=== PATIENT | female | born 1955 | race Caucasian/White ===

== ENCOUNTER 2023-03-08 10:43 | Inpatient (IN) | payer MEDICARE ==
[2023-03-08] VITALS (15 sets, daily range): BP systolic 110–142; BP diastolic 54–76
[~2023-03-08] VITALS: Ht 165.1 cm; Wt 48.4 kg
[~2023-03-08 10:43] MED LIST: BUPR150T2 PO; CLIN300 PO; Flonase 0.05% N16 GM; GABA300 PO; LOSHYD PO; OXYACE5T PO; Vyvanse50 MG PO; [UNRECOGNIZED DRUG - REMARK]
[2023-03-08 11:29] LABS: BASOPHILS ABSOLUTE AUTO 0.13 K/mm3 (0.00-0.23); BASOPHILS PERCENT AUTO 1 % (0-2); EOSINOPHILS ABSOLUTE AUTO 0.01 K/mm3 (0.00-0.68); EOSINOPHILS PERCENT AUTO 0 % (0-6); Hematocrit 41.8 % (33.0-51.0); Hemoglobin 14.3 g/dL (11.5-16.0); IMMATURE GRAN ABSOLUTE AUTO 0.23 K/mm3 (0.00-0.10); IMMATURE GRAN PERCENT AUTO 1 % (0-1); LYMPHOCYTES PERCENT AUTO 6 % (21-46); MONOCYTES ABSOLUTE AUTO 1.44 K/mm3 (0.16-1.47); MONOCYTES PERCENT AUTO 5 % (4-13); Mean Corpuscular HGB Conc 34.2 g/dL (31.5-36.5); Mean Corpuscular Volume 79 fL (80-100); Mean Platelet Volume 8.7 fL (9.1-12.4); NEUTROPHILS ABSOLUTE AUTO 23.62 K/mm3 (1.96-9.15); NEUTROPHILS PERCENT AUTO 87 % (41-73); Platelet Count 584 K/mm3 (150-400); RDW Standard Deviation 36.8 fL (35.1-46.3); White Blood Cell Count 27.13 K/mm3 (4.00-11.30)
[2023-03-08 11:44] LABS: Albumin, Blood 3.2 g/dL (3.4-5.0); Albumin/Globulin Ratio 0.7 (0.8-1.8); Bilirubin, Total 0.8 mg/dL (0.1-1.0); Bun/Creatinine Ratio 72.9 (12.0-20.0); Creatinine, Blood 0.77 mg/dL (0.40-1.00); Globulin, Blood 4.9 g/dL (2.2-4.0); Potassium, Blood 3.7 mmol/L (3.5-5.5); Total Protein, Blood 8.1 g/dL (6.4-8.2)
[2023-03-08 12:18] LABS: Influenza A, PCR NEGATIVE (NEGATIVE); Influenza B, PCR NEGATIVE (NEGATIVE); Resp Syncytial Virus, PCR NEGATIVE (NEGATIVE); SARS-Cov-2 (COVID-19) PCR, MMC NEGATIVE (NEGATIVE)
--- NOTE | 2023-03-08 13:58 | NUR ---
RECEIVED PT FROM ER. PT IS ALERT BUT APPEARS ORIENTED TO SELF ONLY. PT DENIES PAIN AT THIS TIME. PERSONAL HX OF DEMENTIA PER DR. MIGUEL AFTER SPEAKING WITH PT DAUGHTER KOKI. PT DENIES PAIN AT THIS TIME. PT C/O VOMITING AND STATES ITS BEEN "DAYS AGO" LS CLEAR T/O. IV 18G LAC, 18 RFA. PT PREPS FOR SURGERY.
[2023-03-08 15:52] LABS: Bilirubin, Urine Neg (Neg); Blood, Urine 1+ (Neg); Color, Urine Yellow (P-Yellow); Glucose Qualitative, Urine Neg (Neg); Ketones, Urine 3+ (Neg); Leukocyte Esterase, Urine 1+ (Neg); Nitrite, Urine Neg (Neg); Protein, Urine 2+ (Neg); Urobilinogen, Urine 1+ (Normal)
[2023-03-08 16:05] LABS: Appearance, Urine Hazy (Clear)
[2023-03-08 16:06] LABS: Amorphous Light (0-Heavy); Bacteria Many /hpf; Mucus Light (0-Heavy); Red Blood Cells, Urine 0-2 /hpf (0-2); Squamous Epithelial Cells Rare /hpf (Few)
[2023-03-08 18:43] LABS: Bun/Creatinine Ratio 60.6 (12.0-20.0); Calcium, Blood 7.2 mg/dL (8.5-10.1); Creatinine, Blood 0.61 mg/dL (0.40-1.00); Potassium, Blood 3.7 mmol/L (3.5-5.5)
[2023-03-09 03:48] VITALS: BP 114/65
[2023-03-09 04:44] LABS: BASOPHILS ABSOLUTE AUTO 0.06 K/mm3 (0.00-0.23); BASOPHILS PERCENT AUTO 0 % (0-2); EOSINOPHILS ABSOLUTE AUTO 0.03 K/mm3 (0.00-0.68); EOSINOPHILS PERCENT AUTO 0 % (0-6); Hematocrit 32.1 % (33.0-51.0); Hemoglobin 10.5 g/dL (11.5-16.0); IMMATURE GRAN ABSOLUTE AUTO 0.09 K/mm3 (0.00-0.10); IMMATURE GRAN PERCENT AUTO 1 % (0-1); LYMPHOCYTES ABSOLUTE AUTO 1.54 K/mm3 (0.84-5.20); LYMPHOCYTES PERCENT AUTO 10 % (21-46); MONOCYTES ABSOLUTE AUTO 1.02 K/mm3 (0.16-1.47); MONOCYTES PERCENT AUTO 7 % (4-13); Mean Corpuscular HGB Conc 32.7 g/dL (31.5-36.5); Mean Corpuscular Volume 83 fL (80-100); Mean Platelet Volume 8.9 fL (9.1-12.4); NEUTROPHILS ABSOLUTE AUTO 12.37 K/mm3 (1.96-9.15); NEUTROPHILS PERCENT AUTO 82 % (41-73); Platelet Count 357 K/mm3 (150-400); RDW Coefficient Variation 13.2 % (11.7-14.2); RDW Standard Deviation 39.8 fL (35.1-46.3); Red Blood Cell Count 3.89 M/mm3 (3.80-5.20); White Blood Cell Count 15.11 K/mm3 (4.00-11.30)
[2023-03-09 05:15] LABS: Bun/Creatinine Ratio 56.5 (12.0-20.0); Calcium, Blood 7.8 mg/dL (8.5-10.1); Creatinine, Blood 0.51 mg/dL (0.40-1.00); Magnesium, Blood 2.1 mg/dL (1.6-2.4); Phosphorus, Blood 2.2 mg/dL (2.5-4.9); Potassium, Blood 3.6 mmol/L (3.5-5.5)
--- NOTE | 2023-03-09 06:30 | NUR ---
SHIFT SUMMARY PT IS HERE POD#1 FOR A FEMORAL HERNIA REPAIR AFTER HAVING A SIGNIFICANT SBO. PT HAS AN NGT IN, BUT IS HAVING DIFFICULTY REMEMBERING TO LEAVE IT IN D/T DEMENTIA, WHICH THE PT DENIES HAVING. PT HAD A SITTER THE FIRST HALF OF THE SHIFT AND WAS ABLE TO BE RE-ORIENTED CONSISTENTLY. AFTER THE SITTER LEFT, PT HAD DIFFICULTY REMEMBERING TO LEAVE THE TAPE ON SECURING HER NGT. PT KEPT SAYING HER DAUGHTER WAS HERE TO VISIT, WHICH SHE IS NOT, AND THAT SHE NEEDED TO LEAVE THE HOSPITAL TO TAKE "CARE OF BUSINESS." PT RE-ORIENTED AND EDUCATED THROUGHOUT THE SHIFT. ALVAREZ GREENE STAYED WITH PT FOR THE LAST FEW HOURS OF THE SHIFT TO ENSURE THE PT DOES NOT REMOVE HER NGT. PT'S VITAL SIGNS HAVE BEEN STABLE THROUGHOUT THE SHIFT. NO OTHER ACUTE EVENTS OCCURRED OVERNIGHT. BED IS IN LOWEST POSITION, CALL LIGHT IS WITHIN REACH.
[2023-03-09 07:26] VITALS: BP 118/66
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
[2023-03-09 14:30] VITALS: BP 104/49
[2023-03-09 14:58] VITALS: BP 108/55
[2023-03-09 20:21] VITALS: BP 119/58
[2023-03-10 02:51] VITALS: BP 100/51
--- NOTE | 2023-03-10 06:00 | NUR ---
SHIFT SUMMARY PT HAS RESTED T/O THE NIGHT, PT HAS HAD NO ANXIETY OR PERIODS OF AGITATION THIS SHIFT. PT DENIES PAIN OR NEEDS WHEN ASKED. SURGICAL DRESSING INTACT. WATSON PATENT AND DRAINING. PT HAS HAD A CLINICAL SITTER AT BEDSIDE T/O SHIFT. VITALS ARE STABLE. NO CHANGE IN PLAN OF CARE. BED IN LOWEST POSITION, CALL LIGHT WITHIN REACH.
[2023-03-10 07:06] VITALS: BP 126/67
[2023-03-10 15:37] VITALS: BP 117/94
--- NOTE | 2023-03-10 16:04 | NUR ---
VISITORS PATIENT HAD A VISITOR THAT WAS A MALE WHO CLAIMED TO BE PATIENT'S S/O. VISITOR HAD 2 SMALL CHILDREN AND ANOTHER WOMAN WHO CLAIMS TO BE THE MOTHER OF THE CHILDREN WELL VISIT THE PATIENT. SITTER WAS IN ROOM WHILE VISIT LASTED APPOROX 10 MIN.ALL ADULT VISITORS APPEARED TO BE IN MID 30'S-40'S AGE RANGE. PATIENT SEEMED FINE WITH VISIT.
[2023-03-10 16:35] LABS: Source, Urine Foley catheter
[2023-03-10 16:40] LABS: Bilirubin, Urine Neg (Neg); Blood, Urine 2+ (Neg); Glucose Qualitative, Urine Neg (Neg); Ketones, Urine 1+ (Neg); Leukocyte Esterase, Urine 3+ (Neg); Nitrite, Urine Neg (Neg); Protein, Urine 1+ (Neg); Urobilinogen, Urine NORM (Normal)
[2023-03-10 16:47] LABS: Appearance, Urine Hazy (Clear); Bacteria Few /hpf; Color, Urine Pale Yellow (P-Yellow); Squamous Epithelial Cells Not Seen /hpf (Few)
--- NOTE | 2023-03-10 17:04 | NUR ---
REPORT OFF TO KAE SHAW. PATIENT WAS STRAIGHT CATHED WITH 800 OUT, TOLERATED WELL. PATIENT IS COOPERATIVE WITH CARE, AOX2-3 AT TIMES. HX OF DEMENTIA. HERNIA REPAIR DRESSING IN PLACE WITH TEGEDERM AND GAUZE C/D/I. BED ALARM AND SITTER IN PLACE. CALL IN REACH.
[2023-03-10 19:18] VITALS: BP 105/62
[2023-03-11 03:19] VITALS: BP 127/69
--- NOTE | 2023-03-11 05:50 | NUR ---
SHIFT SUMMARY PT HAS RESTED MOST OF THE NIGHT. PT PULLED OUT ONE OF HER IV EARLIER IN THE MORNING. BUT OTHERWISE PT HAS BEEN COOPERATIVE WITH CARE, SHE HAS NOT ATTEMPTED TO PULL OUT HER OTHER IV. VITALS ARE STABLE. SURGICAL SITE TO LOWER ABD WITHIN NORMAL LIMITS, DRESSING DRY AND INTACT. BOWEL TONES HYPERACTIVE TO LOWER QUADRANTS. PT DENIES PAIN. 1:1 SITTER T/O THE NIGHT. PLAN OF CARE OF CARE REMAINS UNCHANGED.
[2023-03-11 07:34] VITALS: BP 104/72
--- NOTE | 2023-03-11 09:32 | NUR ---
DR MIGUEL IN TO SEE PT.
--- NOTE | 2023-03-11 10:22 | NUR ---
DR KUMAR IN TO SEE PT.
[2023-03-11 15:12] VITALS: BP 109/61
--- NOTE | 2023-03-11 16:29 | NUR ---
summary NO ACUTE CHANGES THUS FAR IN SHIFT. PT SLEPT FIRST HALF OF SHIFT, AWAKENING TO VOICE. REPOSITIONS FREQUENTLY IN BED. WATSON DRAINING LIGHT YELLOW URINE. PT HAS HAD MINIMAL PO INTAKE, STATING FULL LIQUIDS HAVE TOO MANY SWEET ITEMS. ADVANCED PER ORDERS TO REGULAR DIET FOR DINNER PER PT REQUEST. PT ORIENTED REMAINS ORIENTED A&OX1-2. SITTER AT DOOR.
[2023-03-11 20:12] VITALS: BP 110/64
--- NOTE | 2023-03-11 20:57 | NUR ---
PT IS BEING PLACED ON CAMERA OBSERVATION FOR IMPULSIVITY INSTEAD OF 1:1 SITTER AND ORDERS RECEIVED.HOWEVER, CONTINUING PT ON 1:1 SITTER AT THIS TIME UNTIL ENERGY SALES CONSULTANT CAN OBTAIN CAMERA FOR PT.
[2023-03-12 03:36] VITALS: BP 101/60
--- NOTE | 2023-03-12 06:41 | NUR ---
SHIFT SUMMARY PT IS POD#4 FOR AN INCARCERATED LEFT FEMORAL HERNIA REPAIR WITH MESH. PT RESTED COMFORTABLY MOST OF THE SHIFT WITH NO ACUTE EVENTS OCCURRING OVERNIGHT. SITTER WAS DC'D AND A VIDEO MONITORING SYSTEM WAS PUT IN PLACE TO WATCH OVER THE PT FOR THE MAJORITY OF THE SHIFT. BED IS IN LOWEST POSITION, CALL LIGHT IS WITHIN REACH.
[2023-03-12 07:31] VITALS: BP 100/54
[2023-03-12 15:15] VITALS: BP 93/54
--- NOTE | 2023-03-12 16:53 | NUR ---
PATIENT AOX2. ABLE TO SIT UP AND EAT AT SIDE OF BED. TOELRATING PO INTAKE AND DENIES PAIN, N/V. CAMERA IN ROOM FOR SAFETY, BED ALARM IS ON. NO IV ACCESS. PATIENT IS PLEASANT AND COOPERATIVE WITH CARE. CALL LIGHT IS IN REACH.
[2023-03-12 19:40] VITALS: BP 103/55
--- NOTE | 2023-03-12 23:55 | NUR ---
PT COMPLAINING OF PAIN. UNABLE TO COMPLETELY ARTICULATE THE NATURE OF THIS PAIN. DISCUSSED WITH PT AND SHE IS COMFORTABLE TAKING TYLENOL FOR MANAGEMENT. SPOKE WITH HOSPITALIST CHAY WHO ORDERED ACETAMINOPHEN AND TRAMADOL PO FOR PAIN MANAGEMENT, START WITH TYLENOL AND USE TRAMADOL IF TYLENOL IS INSUFFICIENT. ORDERS ENTERED AND WILL ADMINISTER ONCE AVAILABLE.
[2023-03-13 03:32] VITALS: BP 109/60
--- NOTE | 2023-03-13 04:15 | NUR ---
SHIFT SUMMARY. SHIFT HAS BEEN MOSTLY UNREMARKABLE. PT IS PLEASANT AND COOPERATIVE WITH CARE. ONLY COMPLAINT OF SHIFT WAS LATE LAST NIGHT WHEN PT COMPLAINED OF PAIN AT CATH SITE. INITIALLY, PT WAS BEING NONDESCRIPT WITH COMPLAINTS OF PAIN AND DID NOT COMPLETELY ARTICULATE IT. CALLED HOSPITALIST FOR PAIN MEDICATION ORDERS. SEE RELATED NOTE FOR DETAILS. UPON ADMINISTRATION OF MEDICATIONS, PT DID SPECIFY THAT SHE WAS EXPERIENCING PAIN AT SITE OF CATHETER PLACEMENT. ADMINISTERED TYLENOL, INSPECTED SITE. DRAINING WELL. NO BLOOD, SWELLING, REDNESS, S/S OF INFECTION AT ALL. PT SOMEWHAT AT EASE AFTER THIS ALTHOUGH IT SEEMED LIKE SHE WAS GENERALLY ANXIOUS ABOUT HAVING CATHETER IN DUE TO REPORTED HX OF UTIs. SINCE TYLENOL ADMINISTRATION, PT HAS BEEN SLEEPING THROUGH MOST OF MORNING. NO FURTHER COMPLAINTS OF PAIN. REMOTE MONITORING CAMERA REMAINS IN PLACE FOR SAFETY. USES CALL LIGHT APPROPRIATELY THUS FAR. BED LOCKED IN LOWEST POSITION. CALL LIGHT LEFT WITHIN REACH. CONTINUING TO MONITOR.
[2023-03-13 07:09] VITALS: BP 101/59
[2023-03-13 15:49] VITALS: BP 103/66
--- NOTE | 2023-03-13 17:51 | NUR ---
SHIFT SUMMARY PT HAS BEEN PLEASANT & UPBEAT TODAY. UP TO SHOWER, SAT IN CHAIR x 2, & AMBULATED IN HALLWAY. DENIES PAIN THIS AFTERNOON. SURG SITE WNL. TOLERATING DIET.
[2023-03-13 18:37] VITALS: BP 98/63
[2023-03-14 03:45] VITALS: BP 92/55
--- NOTE | 2023-03-14 04:21 | NUR ---
SHIFT SUMMARY NO ACUTE CHANGES TO REPORT OVERNIGHT, PT DENIES PAIN. SURGICAL SITE WNL. PT HAS BEEN PLESANT AND COOPERATIVE WITH CARE, NO BEHAVIORAL ISSUES. VITALS ARE STABLE. PLAN OF CARE REMAINS UNCHANGED. [facility]
[2023-03-14 07:22] VITALS: BP 94/57
[2023-03-14 08:58] LABS: Hematocrit 32.4 % (33.0-51.0); Hemoglobin 10.4 g/dL (11.5-16.0); Mean Corpuscular HGB 26.8 pg (26.0-34.0); Mean Corpuscular HGB Conc 32.1 g/dL (31.5-36.5); Mean Corpuscular Volume 84 fL (80-100); Mean Platelet Volume 8.9 fL (9.1-12.4); Platelet Count 298 K/mm3 (150-400); RDW Coefficient Variation 13.3 % (11.7-14.2); RDW Standard Deviation 40.6 fL (35.1-46.3); Red Blood Cell Count 3.88 M/mm3 (3.80-5.20); White Blood Cell Count 5.46 K/mm3 (4.00-11.30)
[2023-03-14 09:10] LABS: Magnesium, Blood 1.8 mg/dL (1.6-2.4)
[2023-03-14 09:11] LABS: Albumin, Blood 2.3 g/dL (3.4-5.0); Anion Gap 4 mmol/L (6-16); Blood Urea Nitrogen 13 mg/dL (8-24); Bun/Creatinine Ratio 24.9 (12.0-20.0); CO2, Blood 29 mmol/L (21-32); Calcium, Blood 8.3 mg/dL (8.5-10.1); Chloride, Blood 108 mmol/L (98-108); Creatinine, Blood 0.52 mg/dL (0.40-1.00); Glomerular Filtration Rate 100 (60-); Glucose, Blood 89 mg/dL (70-99); Phosphorus, Blood 3.2 mg/dL (2.5-4.9); Potassium, Blood 3.7 mmol/L (3.5-5.5); Sodium, Blood 141 mmol/L (136-145)
[2023-03-14 15:01] VITALS: BP 95/65
--- NOTE | 2023-03-14 18:49 | NUR ---
SHIFT SUMMARY WATSON WAS REMOVED & WAS ABLE TO VOID. NO ACUTE CHANGES.
[2023-03-14 19:18] VITALS: BP 104/61
--- NOTE | 2023-03-15 02:56 | NUR ---
RETENTION PT IS RETAINING URINE, 662 MLS IN BLADDER WITH SCAN. PT HAD CATHETER REMOVED DAYSHIFT YESTERDAY AND HAS BEEN VOIDING. SHE VOIDED 300 THIS SHIFT. PT REPORTS THAT SHE IS FEELING DISCOMFORT WITH THE RETENTION. SHE IS AGREEABLE TO HAVING ANOTHER WATSON PLACED AT THIS TIME. DR. SKINNER CALLED AND NOTIFIED OF RETENTION. PT HAS ALSO BEEN MORE AGITATED THIS SHIFT, CLIMBING OUT OF BED FREQUENTLY, ASKING WHEN SHE CAN LEAVE AND HAS NOT SLEPT. DR. SKINNER NOTIFED OF THAT WELL. HE ORDERED A ONE TIME DOSE OF IM ZYPREXA IF NEEDED. WILL PLACE WATSON TO SEE IF EMPTYING HER BLADDER HELPS WITH HER AGITATION.
[2023-03-15 03:59] VITALS: BP 108/68
--- NOTE | 2023-03-15 05:13 | NUR ---
SHIFT SUMMARY PT MORE ANXIOUS THIS SHIFT, SHE HAS BEEN ATTEMPTING TO GET OOB FREQUENTLY AND SETTING OFF BED ALARM. PT ALSO CONFUSED TO SITUATION AND HER CURRENT PLAN OF CARE AND KEEPS ASKING WHEN SHE IS GOING TO BE ABLE TO LEAVE. PT REORIENTED PRN. PT CONTINUES TO HAVE RETENTION ISSUES. PT VOIDED 300 MLS AT THE START OF THE SHIFT, BUT DESPITE THIS PT WAS FOUND TO STILL BE RETAINING OVER 600 MLS OF URINE. NOTIFIED OF RETENTION AND ANOTHER CATHETER WAS PLACED. VIRTUAL CAMERA IN PLACE. BED ALARM IN PLACE, CALL LIGHT WITHIN REACH.
[2023-03-15 07:24] VITALS: BP 111/61
[2023-03-15 15:16] VITALS: BP 97/63
--- NOTE | 2023-03-15 16:28 | NUR ---
SHIFT SUMMARY PT HAS BEEN PLEASANT, BUT ODD T/O SHIFT; UNCHANGED. UP FOR MEALS & AMBULATED IN HALLWAY. EATING & DRINKING. WATSON & SURG SITE WNL.
[2023-03-15 19:04] VITALS: BP 98/70
[2023-03-16 02:12] VITALS: BP 96/53
--- NOTE | 2023-03-16 06:19 | NUR ---
SHIFT SUMMARY PT HAD AN UNEVENTFUL NIGHT AND SLEPT FOR MOST OF THE SHIFT. VITAL SIGNS STABLE AND WATSON CATHETER REMAINS PATENT. BED IS IN LOWEST POSITION, CALL LIGHT IS WITHIN REACH.
[2023-03-16 07:39] VITALS: BP 107/63
--- NOTE | 2023-03-16 15:00 | NUR ---
SHIFT SUMMARY: POD 8 LEFT HERNIA REPAIR WITH MESH PATIENT IS A&OX2 WITH HX OF DEMENTIA. VS ARE WNL AND IS ON RA. PATIENT DENIES PAIN THROUGHOUT SHIFT. PATIENT IS TOLERATING PO INTAKE. PATIENT HAS WATSON IN PLACE DUE TO RETENTION ISSUES BUT IS DRAINING PER GRAVITY WITH YELLOW URINE OUTPUT. PATIENT HAS SO FAR CALLED APPROPRIATELY. BED ALARM/CHAIR ALARM IN PLACE A PRECAUTION. SHE IS LAYING IN BED WITH CALL LIGHT IN REACH. THE PLAN IS WAITING FOR HER DAUGHTER TO OBTAIN GUARDIANSHIP THROUGH APS AND THEN EVENTUALLY BEING DISCHARGED TO A [employer] [employer] [facility].
--- NOTE | 2023-03-16 15:08 | NUR ---
THIS NURSE JUST GAVE REPORT TO LOUIS SHAW ON MEDICAL FLOOR. AFTER REPORT WAS GIVEN LOUIS RN HAD NO FURTHER QUESTIONS AT THIS TIME.
--- NOTE | 2023-03-16 15:44 | NUR ---
TRANSFER FROM SURGICAL FLOOR PATIENT TRANSFERED FROM SURGICAL FLOOR VIA WHEELCHAIR. PATIENT ALERT AND INTERACTIVE BUT ANXIOUS AND FORGETFUL. PATIENT COOPERATIVE WITH CARE AND VERBALIZING THAT SHE CAN'T WAIT FOR HER DAUGHTER TO GET HER. L GROIN SITE INTACT. [address] IN PL[address]. NO DRAINAGE OR REDNESS NOTED. CAMERA IN ROOM FOR SAFETY. PATIENT REORIENTED TO ROOM AND CALL LIGHT PROVIDED.
[2023-03-16 15:54] VITALS: BP 91/52
[2023-03-16 19:21] VITALS: BP 117/67
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
[2023-03-17 02:52] VITALS: BP 114/62
--- NOTE | 2023-03-17 03:48 | NUR ---
NO CHANGE IN CONDITION 0330 PT AWAKE AND ALERT WOULD REALLY LIKE TO GO HOME TODAY IF DAUGHTER ARRIVES. I EXPLAINED THE NEED FOR WATSON TO BE REMOVED BUT IT WAS REINSERTED BECAUSE PT COULDNT URINATE. I ENG BLADDER TRAINING AND CLAMPED THE WATSON. PT THOUGH CONFUSED SOMETIMES WAS ABLE TO UNDERSTAND WHY THE WATSON WAS CLAMPED.
[2023-03-17 07:26] VITALS: BP 104/68
[2023-03-17 16:10] VITALS: BP 93/61
--- NOTE | 2023-03-17 17:02 | NUR ---
SHIFT SUMMARY PATIENT ALERT AND INTERACTIVE BUT CONFUSED. PATIENT AMBULATING INDEPENDENTLY. EASILY ANXIOUS. PATIENT ABLE TO AMBULATE IN HALLS WITH STAND BY ASSIST. PATIENT SHOWERED. CATHETER STILL IN PLACE. PATIENT HAVING SMALL FREQUENT SOFT STOOLS. L GROIN INCISION REMAINS INTACT. STERISTRIPS REMOVED IN SHOWER. PATIENT EAGER FOR DAUGHTER TO ARRIVE AND GET HER. NO BEHAVIORS NOTED. PATIENT COOPERATIVE WITH CARE AND FOLLOWING DIRECTION.
[2023-03-17 19:26] VITALS: BP 108/59
[2023-03-18 02:53] VITALS: BP 90/55
[2023-03-18 05:05] VITALS: BP 94/55
--- NOTE | 2023-03-18 05:25 | NUR ---
PATIENT IS ALERT AND ORIENTED TO NAME, EVENT AND PLACE WITH INDWELLING CATHETER PATENT AND DRAINING WELL. NO COMPLAINTS OF PAIN. ABLE TO SLEPT WELL. NEEDS ATTENDED. CALL LIGHT WITHIN PATIENT'S REACH. WILL CONTINUE TO MONITOR.
[2023-03-18 07:36] VITALS: BP 93/59
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
[2023-03-18 20:49] VITALS: BP 81/40
[2023-03-18 20:57] VITALS: BP 95/53
[2023-03-19 02:49] VITALS: BP 101/53
--- NOTE | 2023-03-19 06:16 | NUR ---
PATIENT IS ALERT AND ORIENTED, NO COMPLAINTS OF PAIN MADE. ABLE TO AMBULATE TO THE BATHROOM ON SBA; ABLE TO TAKE MEDICACTION WITHOUT ANY ISSUES; HAD A BOWEL MOVEMENT TODAY AND PATIENT WAS HAPPY ABOUT IT. NEEDS ATTENDED. WILL CONTINUE TO MONITOR.
[2023-03-19 07:12] VITALS: BP 109/61
--- NOTE | 2023-03-19 07:47 | NUR ---
ASSUMED CARE OF PT- REPORT COMPLETED WITH NIGHT RN. PT ALERT, ORIENTED TO SELF. ON MORNING ASSESSMENT SPOKE TO THE PT ABOUT HER INSISION FROM HERNIA REPAIR. PT IS CONFUSED. DENIES ANY PAIN. SOME GEN SWELLING TO THE AREA NO REDNESS OR HEAT, NO DRAINAGE NOTED.
[2023-03-19 16:07] VITALS: BP 100/57
--- NOTE | 2023-03-19 16:38 | NUR ---
SHIFT SUMMARY- PT HAS HAD NO ACUTE CHANGE T/O THE SHIFT. SHE HAS BEEN UP SBA T/O THE DAY, CHAIR FOR MEALS AND A SHOWER THAT SHE DID INDEPENDENTLY, AID ASSISTED HER TO THE BATHROOM AND GETTING INTO THE SHOWER, PT DID THE WHOLE SHOWER ON HER OWN. PT CURRENTLY IN BED, CALL LIGHT IN REACH NO S&S OF DISTRESS NOTED.
[2023-03-19 19:36] VITALS: BP 95/54
[2023-03-20 04:24] VITALS: BP 94/67
[2023-03-20 04:25] VITALS: BP 94/67
--- NOTE | 2023-03-20 04:53 | NUR ---
SHIFT SUMMARY - NO ACUTE CHANGES THROUGHOUT THIS SHIFT. STERI STRIP IN PLACE TO LEFT GROIN SITE - SITE SWOLLEN AT THE BEGINNING OF THE SHIFT, NO CHANGE TO SITE FROM BEGINNING OF SHIFT. PT REQUESTED A SNACK AND PO FLUIDS DURING THE NIGHT - PROVIDED. FLUIDS AT BEDSIDE THROUGHOUT THE NIGHT. PT HAS BEEN UP TO THE CHAIR, AND TO THE BATHROOM WITH A SBA. BED ALARM ON FOR PT SAFETY. CALL LIGHT WITHIN REACH. BED IN LOW POSITION. WILL CONTINUE TO MONITOR UNTIL AM SHIFT CHANGE.
[2023-03-20 07:15] VITALS: BP 116/58
[2023-03-20 15:37] VITALS: BP 129/73
--- NOTE | 2023-03-20 16:32 | NUR ---
SHIFT SUMMARY PT AOX1, ORIENTED TO FAMILY. C/O NAUSEA AT THE START OF THE SHIFT, MEDICATED PER THE EMAR. NO OTHER COMPLAINTS. PT HAS BEEN EATING AND DRINKING WELL, USING THE CALL LIGHT FOR SBA TO THE BR. CAMERA IN PLACE. WALKED WITH PT IN THE HALLS TODAY AND SHE TOLERATED IT WELL. UP TO THE CHAIR FOR MEAL AND TOLERATING IT WELL. CALL LIGHT WITHIN REACH, BED IN THE LOWEST POSITION. WILL REPORT TO ONCOMING NURSE.
[2023-03-20 19:33] VITALS: BP 109/54
--- NOTE | 2023-03-21 04:24 | NUR ---
SHIFT SUMMARY 68 YR F ADMITTED ON 03/08/23. FULL CODE. NO ACUTE CHANGES THIS SHIFT. PT HAS SLEPT FOR MOST OF THIS SHIFT BUT DOES NOT CALL FOR ASSISTANCE WHEN SHE GETS UP TO USE THE BATHROOM. HOWEVER, SHE IS STEADY ON HER FEET AND AMBULATES WELL. SHE APPEARS TO BE CONFUSED AND STATES THAT SHE IS WAITING FOR HER FAMILY TO PICK HER UP AND TAKE HER HOME WITH THEM. SHE IS PLEASANT AND COOPERATIVE WITH CARE. NO C/O PAIN OR DISCOMFORT THIS SHIFT. BED IN LOW POSITION AND CALL LIGHT IN REACH. SHE IS STILL ON CAMERA BUT THIS NURSE WAS NOT ALERTED WHEN PT GOT OUT OF BED W/O ASSISTANCE.
[2023-03-21 04:47] VITALS: BP 96/58
[2023-03-21 07:18] VITALS: BP 114/70
[2023-03-21 15:23] VITALS: BP 117/61
--- NOTE | 2023-03-21 16:15 | NUR ---
SHIFT SUMMARY PT AOX1, COOPERATIVE WITH CARE. NO ACUTE ISSUES THIS SHIFT. PT MEDICATED FOR NAUSEA AT THE START OF THE SHIFT, NO ISSUES SINCE. APPETITE IS GOOD, DRINKING FLUIDS. CAMERA IS STILL IN PLACE BUT ALLOWING PT TO MOVE MORE FREELY IN THE ROOM. SHE IS TOLERATING IT WELL AND THERE HAVE BEEN NO ISSUES. CALL LIGHT WITHIN REACH, BED IN THE LOWEST POSITION. WILL REPORT TO ONCOMING NURSE.
[2023-03-21 19:20] VITALS: BP 96/52
[2023-03-22 02:09] VITALS: BP 109/68
--- NOTE | 2023-03-22 03:48 | NUR ---
SHIFT SUMMARY 68 YR F ADMITTED ON 03/08/23. FULL CODE. NO ACUTE CHANGES THIS SHIFT. PT HAS SLEPT FOR MOST OF THIS SHIFT. SHE WOKE UP FOR 2100 MEDS AND WENT RIGHT BACK TO SLEEP. NO C/O PAIN OR DISCOMFORT. BED IN LOW POSITION AND CALL LIGHT IN REACH. WILL CONTINUE TO MONITOR.
[2023-03-22 07:10] VITALS: BP 116/72
[2023-03-22 15:50] VITALS: BP 116/68
--- NOTE | 2023-03-22 17:18 | NUR ---
SHIFT SUMMARY: PT ORIENTED TO SELF ONLY. INDEPENDENT IN ROOM. NO ACUTE CHANGES THIS SHIFT. CAMERA IN PT ROOM DISCONTINUED THIS SHIFT THERE WAS NO NEED FOR IT. PT IS NOT A FALL RISK OR PULLING AT LINES. PT C/O HARD STOOLS DURING AM SHIFT REPORT BUT HAS NOT C/O OF THIS PROBLEM SINCE. CALL LIGHT IN REACH. BED IN LOWEST POSITION.
[2023-03-22 19:52] VITALS: BP 93/46
--- NOTE | 2023-03-23 04:40 | NUR ---
SHIFT SUMMARY 68 YR F ADMITTED ON 03/08/23. FULL CODE. NO ACUTE CHANGES THIS SHIFT. PT HAS SLEPT FOR MOST OF THIS SHIFT. SHE IS INDEPENDANT IN THE ROOM AND AMBULATES TO THE BATHROOM. NO C/O PAIN OR DISCOMFORT THIS SHIFT. BED IN LOW POSITION AND CALL LIGHT IN REACH. WILL CONTINUE TO MONITOR.
[2023-03-23 04:59] VITALS: BP 114/73
[2023-03-23 06:59] VITALS: BP 118/69
--- NOTE | 2023-03-23 09:59 | NUR ---
ALERT AND ORIENTED, INDEPEDANT IN ROOM, VERY STEADY GAIT, PLEASANT TO CARE, NO SIGNS OR SYMPTOMS OF DISTRESS, RESP EVEN AND NONLABORED, DENIES PAIN OR SOB, CALL LIGHT WITH IN REACH
[2023-03-23 15:25] VITALS: BP 111/71
--- NOTE | 2023-03-23 17:45 | NUR ---
PLEASANT TO CARE, MAKES NEEDS KNOWN, INDEPENDANT IN ROOM, MEDICALLY STABLE WAITING FOR PLACEMENT/INSURANCE, SURGICAL L FEMORAL HERNIA CDI OPEN TO AIR, NO IV, SATS RA, DENIES DISTRESS PAIN OR N/V. CALL LIGHT WITH IN REACH, WILL RELAY TO PM RN
[2023-03-23 19:59] VITALS: BP 103/66
[2023-03-24 03:09] VITALS: BP 111/66
--- NOTE | 2023-03-24 04:28 | NUR ---
SHIFT SUMMARY PT A&OX2 AND PLEASANT. NO ACUTE CHANGES. PT WOKE AT ABOUT 0300 WITH ABD PAIN THAT THE PT DESCRIBED "BOILING" PAIN. FLUIDS AND PUDDING PROVIDED WELL PAIN MEDICATIONS PER EMAR WITH GOOD EFFECT. PT ABLE TO SLEEP MOST OF THE NIGHT. VSS. BED IN LOWEST POSITION AND CALL LIGHT IN REACH.
[2023-03-24 07:24] VITALS: BP 101/73
--- NOTE | 2023-03-24 12:42 | NUR ---
patient compliand about constipation, medicated with miralax
[2023-03-24 16:01] VITALS: BP 104/65
--- NOTE | 2023-03-24 17:45 | NUR ---
NO ACUTE CHANGES, WAITING FOR [facility] CARE, PATEINT IRRATIONAL AND OBSSESSED WITH BM TODAY, CONITONUES TO VIGOUROUSLY RUB LEFT HERNIA SURGICAL SITE "THE DOCTOR TOULD ME TO DO THIS TO MAKE IT BETTER", "I DIDNT HAVE A HERNIA REPAIR THATS FROM A DOG BITE", PATIENT DEFENSIVE ABOUT REDIRECTION, EASILY FORGETS SUBJECTS, INDEPEDANT IN ROOM, CALL LIGHT WITH IN REACH
[2023-03-24 19:55] VITALS: BP 118/70
[2023-03-25 02:30] VITALS: BP 107/65
--- NOTE | 2023-03-25 04:23 | NUR ---
SHIFT SUMMARY NO ACUTE CHANGES. PT REPORTED FEELING CONSTIPATED. BOWEL CARE GIVEN PER EMAR. PT SLEPT T/O NIGHT. NO C/O PAIN. VSS. BED IN LOWEST POSITION AND CALL LIGHT IN REACH.
--- NOTE | 2023-03-25 18:15 | NUR ---
no acute changes, showered today, patient had a bm yesterday, patient focused on bm, waiting for intermediate manager placement, independant in room, cooperative to care, uses call light appropriately, call light with in reach
[2023-03-25 18:44] VITALS: BP 100/54
[2023-03-25 20:02] VITALS: BP 100/54
[2023-03-26 04:22] VITALS: BP 107/59
--- NOTE | 2023-03-26 04:51 | NUR ---
SHIFT SUMMARY PT IS A&O TO SELF ONLY. PLEASANT AND COOPERATIVE. VSS, BP ARE SOFT, BUT HAS BEEN THE TREND, ON RA. DENIES PAIN. UP INDEPENDENTLY IN ROOM/BR. LEFT GROIN INCISION CLEAN, DRY AND BIOCHEMISTRY TECHNOLOGIST. BED IN LOWEST POSITION, CALL LIGHT WITHIN REACH.
[2023-03-26 07:28] VITALS: BP 110/71
[2023-03-26 15:44] VITALS: BP 130/86
--- NOTE | 2023-03-26 16:55 | NUR ---
SHIFT SUMMARY PT AXO X1-2, PLEASANT AND COOPERATIVE WITH CARE. VSS. PT UP AD ALISA IN ROOM WITH STEADY GAIT. NO ACUTE CHANGES THIS SHIFT. NO IV IN PLACE. BED IN LOW POSITION, CALL LIGHT WITHIN REACH. PT DENIES PAIN, SOB AND NV.
[2023-03-26 20:03] VITALS: BP 119/69
--- NOTE | 2023-03-27 04:42 | NUR ---
SHIFT SUMMARY PT IS A&OX2, PLEASANT AND COOPERATIVE. NO ACUTE CHANGES THIS SHIFT. VSS ON RA. C/O DISCOMFORT ON HER COCCYX, SHE DOES HAVE AN AREA THAT SEEMS TO BE IN THE HEALING PROCESS, I GAVE HER SOME SILICONE CREAM TO APPLY TO THE AREA. IT IS NOT OPEN. INCISION TO LEFT GROIN, WELL APPROXIMATED, C/D AND CAPTAIN AIRLINE PILOT. AREA IS SOFT TO PALPATE, NOT TENDER, AND DENIES PAIN. SHE IS UP AD ALISA IN ROOM/BR. VOIDING IN BR, NO BM THIS SHIFT. BED IN LOWEST POSITION, CALL LIGHT WITHIN REACH. CALLS APPROPRIATELY.
[2023-03-27 05:14] VITALS: BP 105/56
[2023-03-27 07:28] VITALS: BP 111/70
[2023-03-27 16:14] VITALS: BP 109/76
--- NOTE | 2023-03-27 18:02 | NUR ---
SHIFT SUMMARY PT AXO TO SELF ONLY, ANXIOUS AND STATES SHE IS EAGER TO "GO HOME." NO ACUTE CHANGES THIS SHIFT. NO IV IN PLACE. PT UP AD ALISA IN ROOM WITH STEADY GAIT. SPIRITUAL CARE IN TO VISIT WITH PATIENT AND PRAY WITH HER, SEE NOTE. BED IN LOW POSITION, CALL LIGHT WITHIN REACH.
--- NOTE | 2023-03-27 18:37 | NUR ---
SPiritual Care Request, Pt. is awake in bed and welcomes my visit. Pt. displays evidence of being confused but pleasant. Pt. is unsettled about not being able to go home, Listen with empathy and a calming presence. Considered matters of otto and belief, and Pt. shared memories of her childhood and the psiritual influence of her grandparents. Facilitated a lengthy life review and prayed with the Pt. Pt. displayed evidence of lessened anxiety about her hospitalization. Pt. verbalized gratitude for the spiritual care visit.
[2023-03-27 20:03] VITALS: BP 101/58
[2023-03-28 03:21] VITALS: BP 107/65
--- NOTE | 2023-03-28 04:38 | NUR ---
SHIFT SUMMARY PT IS A&O TO HERSELF. VSS ON RA. NO ACUTE CHANGES OVER NOC. DENIES PAIN. ANXIOUS TO GET HOME, WORRIED ABOUT NOT PAYING HER BILLS AND TAKING CARE OF THE HOUSE. UP AD ALISA IN ROOM/BR, QS OUTPUT. NO BM THIS SHIFT. BED IN LOWEST POSITION, CALL LIGHT WITHIN REACH. CALLS APPROPRIATELY.
[2023-03-28 07:13] VITALS: BP 133/78
--- NOTE | 2023-03-28 16:01 | NUR ---
DAYSHIFT SUMMARY Patient alert & oriented to self. Patient is pleasant and cooperative with cares. Independent in the room, calls appropriately for help. Good PO intake this shift. ABD appears moderately distended, bowel tones active/audible. Patient denies ABD pain or tenderness. Vitals stable. Awaiting discharge planning. Call light in reach, Will continue plan of care.
[2023-03-28 16:21] VITALS: BP 107/67
[2023-03-28 20:11] VITALS: BP 114/56
--- NOTE | 2023-03-29 03:52 | NUR ---
SHIFT SUMMARY MS LUIS A NAVARRO APPEARED TO HAVE SLEPT WELL OVERNIGHT WITHOUT PAIN OR DISTRESS. SHE WAS ORIENTATED TO SELF, PLACE AND SEASON BUT NOT DATE OR SITUATION ON ASSESSMENT. UP INDEPENDENTLY THE BATHROOM WITH STEADY GAIT. BED LOW, CALL LIGHT IN REACH.
[2023-03-29 04:40] VITALS: BP 116/73
[2023-03-29 07:29] VITALS: BP 113/67
[2023-03-29 16:14] VITALS: BP 127/87
--- NOTE | 2023-03-29 18:28 | NUR ---
SHIFT SUMMARY: NO CHANGE OR EVENTS DURING THE SHIFT. SHE IS STILL AWAITING FACILITY PLACEMENT AT THIS TIME. SHE DID HAVE AN INTERVIEW TODAY WITH AN ANGENCY. THEY FEEL THAT SHE WOULD NEED MORE MEMORY FOCUSED CARE. NO CHANGES TO CARE PLAN. REMAINS INDEPENDENT MAKES NEEDS KNOWN. PLAN OF CARE ONGOING. NO SIGNS OR SYMPTOMS OF DISTRESS.
[2023-03-29 20:57] VITALS: BP 95/69
--- NOTE | 2023-03-30 03:54 | NUR ---
SHIFT SUMMARY MS LUIS A NAVARRO HAD AN UNEVENTFUL NIGHT. SHE APPEARS TO BE SLEEPING WELL. SHE DENIED PAIN OR OTHER CONCERNS. UP INDEPENDENTLY TO THE BATHROOM. BED LOW, CALL LIGHT IN REACH.
[2023-03-30 05:07] VITALS: BP 112/73
[2023-03-30 07:21] VITALS: BP 107/76
[2023-03-30 15:24] VITALS: BP 119/89
--- NOTE | 2023-03-30 16:30 | NUR ---
SHIFT SUMMARY: NO EVENTS OF CHANGED WITH PATIENT DURING SHIFT. SHE REMAINS INDEPENDENT WITH ADLS. SHE MAKES NEEDS KNOWN AND ORIENTATION IS THE SAME. SHE DID RECEIVE A PHONE CALL FROM HER ROOMMATE TODAY AND HAD A CONVERATION WITH HIM. SHE IS STILL AWAITING GUARDIANSHIP/LTC PLACEMENT. NO SIGNS OR SYMPTOMS OF DISTRESS. PLAN OF CARE ONGOING.
[2023-03-30 19:50] VITALS: BP 92/50
[2023-03-31 03:01] VITALS: BP 121/66
--- NOTE | 2023-03-31 04:08 | NUR ---
SHIFT SUMMARY LISET WAS ALERT AND ORIENTED X3 AT START OF SHIFT. PT MEDICALLY STABLE AND AWAITING PLACEMENT, SHE IS INDEPENDENT IN THE ROOM. ON ASSESSMENT I DID DISCOVER A QUARTER SIZED AREA OF SUPERFICIAL SKIN BREAKDOWN AT THE TOP OF PT'S GLUTEAL FOLD. PT AWARE OF IT AND IS SIDE SLEEPING, MEPLEX APPLIED BUT REMOVED IT WAS BOTHERING THE PT. NO ACUTE EVENTS OR CHANGES IN CONDITION TONIGHT. PT RESTING IN BED AT A LOW POSITION WITH THE CALL LIGHT IN REACH.
[2023-03-31 07:51] VITALS: BP 107/70
[2023-03-31 14:40] VITALS: BP 100/64
--- NOTE | 2023-03-31 18:04 | NUR ---
SHIFT SUMMARY: PT A/O X 2, IND IN ROOM PLEASANT AND COOPERATIVE. PT HAD NO CONCERNS OR COMPLAINTS THROUGHOUT THE DAY. EATING AND DRINKING FLUIDS WELL. PT WAS OBSERVED AT TIMES TO BE QUIETLY TALKING TO SELF IN HER ROOM. MOSTLY OBSERVED HER WATCHING TV THROUGHOUT THE DAY.
[2023-03-31 19:41] VITALS: BP 102/63
[2023-04-01 02:34] VITALS: BP 106/58
--- NOTE | 2023-04-01 04:37 | NUR ---
SHIFT SUMMARY LISET WAS ALERT AND ORIENTED X3 AT START OF SHIFT. PT MEDICALLY STABLE AND AWAITING PLACEMENT, SHE IS INDEPENDENT IN THE ROOM. NO CHANGES IN CONDITION TONIGHT AND, NO ACUTE EVENTS. PT RESTING IN BED AT A LOW POSITION WITH THE CALL LIGHT IN REACH.
[2023-04-01 07:32] VITALS: BP 130/98
[2023-04-01 16:09] VITALS: BP 119/75
--- NOTE | 2023-04-01 17:24 | NUR ---
SHIFT SUMMARY: PT A/O X 2, IND IN ROOM PLEASANT AND COOPERATIVE. PT DID ACTIVITIES AND WATCHED TV THROUGHOUT THE DAY. PT DID NOT HAVE ANY COMPLAINTS OR CONCERNS. EATING WELL.
[2023-04-01 20:21] VITALS: BP 117/77
[2023-04-02 01:57] VITALS: BP 106/67
--- NOTE | 2023-04-02 04:22 | NUR ---
SHIFT SUMMARY PT A&OX3-4 AND CALLS APPROPRIATELY. PT IS CURRENTLY AWAITING GUARDIANSHIP/PLACEMENT. PT RECEIVED EVENING MEDICATIONS AND A SNACK BEFORE SLEEPING THROUGHOUT THE SHIFT. VSS. NO ACUTE EVENTS HAPPENED DURING SHIFT.PT WAS LEFT IN A POSITION OF SAFETY WITH PROPER FALL PRECAUTIONS IN PLACE AND CALL LIGHT IN REACH.
[2023-04-02 07:35] VITALS: BP 111/91
[2023-04-02 15:13] VITALS: BP 115/67
--- NOTE | 2023-04-02 15:45 | NUR ---
SHIFT SUMMARY NO ACUTE CHANGES TO PRESENT THIS SHIFT. PT IS UP INDEPENDENTLY IN AND TO [facility]. PT ABLE TO AMBULATE TO BUNCH AND BACK. NO C/O PAIN. PT MEDICALLY STABLE WAITING PLACEMENT. DR DANGELO IN TO SEE PT THIS AM; NO NEW ORDERS NEEDED. SISTER IN TO VISIT AT THIS TIME. CALL LT IN REACH.
[2023-04-02 20:14] VITALS: BP 90/55
[2023-04-03 04:35] VITALS: BP 93/61
--- NOTE | 2023-04-03 04:45 | NUR ---
SHIFT SUMMARY PT A&O TO SELF, PLACE AND SITUATION. PT SLEPT THEOUGH THE SHIFT WITH NO ACUTE EVENTS OCCURING THROUGHOUT. PT VSS. PT LEFT IN A POSITION OF SAFETY WITH PROPER FALL PRECAUTIONS IN PLACE.
[2023-04-03 07:30] VITALS: BP 127/74
--- NOTE | 2023-04-03 08:33 | NUR ---
Patient was agreeable to having a certified nursing assistant work with her today.
[2023-04-03 16:10] VITALS: BP 148/89
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
[2023-04-03 22:02] VITALS: BP 107/64
--- NOTE | 2023-04-04 02:03 | NUR ---
SHIFT SUMMERY, PT RESTIG IN BED, PT UP OCCASIONALY TO BR TO VOID. CALL LIGHT IN REACH. PT STEADY ON HER FEET.
[2023-04-04 07:09] VITALS: BP 129/95
[2023-04-04 15:15] VITALS: BP 140/86
--- NOTE | 2023-04-04 18:08 | NUR ---
NO ACUTE CHANGES THIS SHIFT. PATIENT PLEASANT AND COOPERATIVE WITH CARE. INDEPENDENT WITH ADL'S. AWAITING GUARDIANSHIP AND PLACEMENT.
[2023-04-04 20:55] VITALS: BP 127/91
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
[2023-04-05 04:23] VITALS: BP 140/81
[2023-04-05 07:37] VITALS: BP 139/85
[2023-04-05 15:30] VITALS: BP 135/89
--- NOTE | 2023-04-05 17:18 | NUR ---
NO ACUTE CHANGES THIS SHIFT. PATIENT INDEPENDENT IN ROOM AND HALLS. ANXIOUS AT TIMES, BUT COOPERATIVE WITH CARE. VSS, ON RA. CONTINUES TO AWAIT GUARDIANSHIP AND PLACEMENT.
[2023-04-05 19:14] VITALS: BP 107/80
[2023-04-06 03:37] VITALS: BP 124/73
--- NOTE | 2023-04-06 04:45 | NUR ---
SHIFT SUMMERY. PT RESTING IN BED, EARLIER PT UP AMBULATING AROUND TALKING WITH THE OTHER RN, PT STILL UPSET ABOUT HAVING TO HAVE A GUARDIAN. PT GIVEN HS MEDS AND A SANDWITCH BEFORE GOING TO SLEEP. CALL LIGHT IN REACH.
[2023-04-06 07:27] VITALS: BP 137/95
--- NOTE | 2023-04-06 17:52 | NUR ---
NO ACUTE CHANGES, MAKES NEEDS KNOWN, TALKING TO SELF IN ROOM, INDEPENDANT IN ROOM, WAITING FOR PLACEMENT AND GUARDIANSHIP, CALL LIGHT WITH IN REACH, NO IV, SHOWERED TODAY, WILL RELAY TO PM RN
[2023-04-06 17:54] VITALS: BP 131/72
[2023-04-06 19:47] VITALS: BP 106/65
[2023-04-07 05:22] VITALS: BP 130/84
--- NOTE | 2023-04-07 05:25 | NUR ---
SHIFT SUMMARY: PT IS ADMITTED FOR BOWEL OBSTRUCTION, HERNIA AND IS A FULL CODE. IS ALERT AND TEOFILO TO MAKE MOST NEEDS KNOWN. UP AD-ALISA WHILE IN ROOM. DENIES PAIN OR DISCOMFORT WHEN ASKED.
[2023-04-07 07:16] VITALS: BP 127/80
[2023-04-07 15:57] VITALS: BP 122/80
--- NOTE | 2023-04-07 16:59 | NUR ---
NO CHANGES, PATIENT INDEPEDANT IN ROOM, MORE PARANOIA AND RESTLESS MOVEING BACK AND FORTH IN ROOM, REDIRECTED, PATIENT PLEASANTLY CONFUSED PRESENTLY, WAITING FOR ALF PLACEMENT AND GUARDIANSHIP, CALL LIGHT WITH IN REACH, WILL RELAY TO PM RN
[2023-04-07 19:17] VITALS: BP 105/59
[2023-04-08 02:38] VITALS: BP 134/83
--- NOTE | 2023-04-08 05:35 | NUR ---
SHIFT SUMMARY: PT IS ADMITTED FOR BOWEL OBSTRUCTION, HERNIA AND IS A FULL CODE. IS ALERT AND ABLE TO MAKE NEEDS KNOW. IS KNOWN TO HAVE DELUSIONS. IS INDEPENDENT WHILE IN ROOM. DENIES PAIN OR DISCOMFORT WHEN ASKED. SHE DID STATE AT ONE POINT DURING THE NIGHT THAT SHE HAD SOMEONE WEIGHT HER AND THAT HER WEIGHT WAS 100LB. HER WEIGHT WAS SUPPOSED TO ABOUT 170LB AND THAT SHE HAS LOST WAY TO MUCH WEIGHT IN THE TIME THAT SHE HAS BEEN HERE.
[2023-04-08 08:31] VITALS: BP 131/84
[2023-04-08 15:33] VITALS: BP 133/77
--- NOTE | 2023-04-08 18:25 | NUR ---
PATIENTS PARANOIA AND DEMANDS INCREASED THROUGH THE DAY, PACING IN THE ROOM, TALKING TO THE TV REMOTE, REPORTED TO DR KUMAR, FRANCISCO PEREZ GIVEN, PATIENT BECAME PLEASANT AND LESS PARANOID. SPEECH SCATTERED AT TIMES, SHOWERED TODAY, WAITING FOR PLACEMENT, CALL LIGHT WITH IN REACH, WILL REALY TO PM RN
[2023-04-09 02:49] VITALS: BP 96/61
--- NOTE | 2023-04-09 05:08 | NUR ---
SHIFT SUMMARY: PT IS ADMITTED FOR BOWEL OBSTRUCTION, HERNIA AND IS A FULL CODE. IS ALERT AND ABLE TO MAKE NEEDS KNOW. IS KNOWN TO HAVE DELUSIONS. IS INDEPENDENT WHILE IN ROOM. DENIES PAIN OR DISCOMFORT WHEN ASKED.
[2023-04-09 07:31] VITALS: BP 131/89
[2023-04-09 16:18] VITALS: BP 150/95
--- NOTE | 2023-04-09 17:03 | NUR ---
0730- THIS RN INFORMED PT AND PT'S SISTER THAT TODAY'S DOCTOR IS DR. KUMAR AND THAT HE WILL BE MAKING ROUNDS TODAY AT SOME POINT. PT AND SISTER HAVE CONCERNS REGARDING PT'S "ADD MED." PT AND FAMILY MEMBER WERE COMPLAINING BECAUSE THEY HAVE "NOT SEEN THE DOCTOR IN DAYS." RN INFORMED PT AND SISTER THAT DOCTORS HAVE TO SEE THEIR PT'S ONCE IN 24 HOURS, THEREFORE HE WILL BE MAKING HIS ROUNDS.
--- NOTE | 2023-04-09 17:07 | NUR ---
1615- THIS RN CALLED DR. KUMAR TO COME SEE PT DUE TO PT AND FAMILY MEMBER REQUEST AND DUE TO DAILY ROUNDING. DR. KUAMR STATED HE WOULD COME SEE THE PT TOMORROW BETWEEN 8AM AND 11AM. RN RELAYED THIS MESSAGE TO THE PT AND SISTER.
--- NOTE | 2023-04-09 17:22 | NUR ---
1640- THIS RN CALLED DR. KUMAR AFTER PT STATED SHE HAD 10/10 PAIN IN HER RLQ AND WAS BLEEDING FROM HER VAGINA. RN EXAMINED PT AND THERE WAS NO BLOOD IN HER VAGINA NOR ANUS. PT DID SHOW RN HER TOILET PAPER AFTER SHE HAD VOIDED AND THERE WAS A MODERATE AMOUNT OF BRIGHT RED BLOOD ON THE TOILET PAPER. PT ATE BREAKFAST AND LUNCH TODAY AND ALSO HAD A BM THIS AFTERNOON. PT'S ABDOMEN WAS ONLY TENDER TO THE RLQ. ALL QUADRANTS WERE SOFT TO PALPATION AND PT HAD BSX4. DR. KUMAR REVIEWE THE PT'S CHART AND ADVISED TO GIVE THE PT TYLENOL AND CONTINUE TO MONITOR THE PT'S BLEEDING AND IF SHE PT BECOMES SICK OR HAS A FEVER.
--- NOTE | 2023-04-09 17:38 | NUR ---
8527- RN WENT INTO PT'S ROOM AND THE PT AND SISTER WERE PACKED UP WALKING OUT OF THE ROOM. RN ASKED IF THEY WERE LEAVING AMA AND PT AND SISTER BOTH RESPONDED WITH. "YES." RN FILLED OUT AMA PAPERWORK AND PT SIGNED AFTER HEARING RISKS VS BENEFITS OF LEAVING AMA. CHARGE NURSE MARLYN DOWNEY NOTIFIED. DR KUMAR NOTIFIED BY MARLYN DOWNEY. PT AND SISTER BOTH WALKED OUT OF THE SCU TOGETHER.
== END 2023-04-09 17:17 | disposition left against medical advice (07) | DRG 351 ==
LOC: ER 10:43 → SURS 16:17 → MEDS 16:17 → SURS 17:14 → ER 18:15 → MEDS 03-16 15:18
PROVIDERS: Internal Medicine; Physician Assistant; ADMIT Surgery
PROC: 0YU80JZ Supplement Left Femoral Region with Synthetic Substitute, Open Approach (ICD-10-PCS; principal; 2023-03-08 14:30)
DX: K41.30 Unilateral femoral hernia, with obstruction, without gangrene, not specified as recurrent (principal); F02.C18 Dementia in other diseases classified elsewhere, severe, with other behavioral disturbance; F02.C3 Dementia in other diseases classified elsewhere, severe, with mood disturbance; G30.9 Alzheimer's disease, unspecified; I10 Essential (primary) hypertension; G47.30 Sleep apnea, unspecified; F90.9 Attention-deficit hyperactivity disorder, unspecified type; J44.9 Chronic obstructive pulmonary disease, unspecified; Z53.29 Procedure and treatment not carried out because of patient's decision for other reasons; Z88.0 Allergy status to penicillin; Z88.2 Allergy status to sulfonamides; Z88.8 Allergy status to other drugs, medicaments and biological substances; Z88.6 Allergy status to analgesic agent; Z79.899 Other long term (current) drug therapy; Z11.52 Encounter for screening for COVID-19
CPT/HCPCS: 0241U; 36415; 51702; 74177; 80048; 80053; 80069; 81001; 83690; 83735; 84100; 85025; 85027; 87077; 87086; 87147; 87186; 93005; 93010; 94760; 94762; 96361; 96374; 99285-25; A9270; C1781; J0694; J1100; J1630; J1650; J1885; J2405; J2710; J3010; J7030; J7120; Q9967